=== PATIENT | female | born 1960 | race African-American/Black ===

== ENCOUNTER → 2018-11-28 | Outpatient (CLI) | payer OTHER ==
[~2018-11-28] MED LIST: LISINOPRIL10 MG PO; PRILOSEC40 MG PO; PROVENTIL HFA6.7 GM
--- NOTE | 2018-11-28 13:12 | Diagnostic Imaging Report ---
EXAMINATION: PA and lateral views of the chest. COMPARISON: None CLINICAL HISTORY: Right lung pain DISCUSSION: Lines/tubes: None. Lungs: The lungs are well inflated and clear. There is no evidence of pneumonia or pulmonary edema. Pleura: There is no pleural effusion or pneumothorax. Heart and mediastinum: Cardiomediastinal silhouette is unremarkable. Pulmonary vasculature is normal. Bones and soft tissues: No acute bony abnormalities. IMPRESSION: No acute cardiopulmonary abnormalities. Signed by: Dr. Derick Chamorro M.D. on 11/28/2018 1:09 PM
== END ==
LOC: RAD 11:22
PROVIDERS: ATTEND Internal Medicine Critical Care Medicine
DX: R05 Cough (principal); R06.00 Dyspnea, unspecified
CPT/HCPCS: 71046

== ENCOUNTER 2021-08-24 10:18 | Emergency (ER) | payer MEDICARE, OTHER ==
[~2021-08-24] VITALS: Ht 157.5 cm; Wt 104.3 kg
[2021-08-24] MEDS ORDERED: CEFUROXIME500 MG PO (10:57)
== END 2021-08-24 11:00 | disposition home or self-care (01) ==
LOC: FSED 10:26
DX: N39.0 Urinary tract infection, site not specified (principal); J44.9 Chronic obstructive pulmonary disease, unspecified
CPT/HCPCS: 81003; 87086; 99283

== ENCOUNTER 2021-08-26 14:55 | Emergency (ER) | payer MEDICARE, OTHER ==
[~2021-08-26] VITALS: Ht 160 cm; Wt 104.3 kg
[~2021-08-26 14:55] MED LIST changes: +CEFUROXIME500 MG PO
[2021-08-26] MEDS ORDERED: CEFTRIAXONE 1 GM VIAL IM ONE (16:15)
[2021-08-26] MEDS ORDERED: PROBIOTIC & AC1 EACH PO (16:22)
== END 2021-08-26 17:15 | disposition home or self-care (01) ==
LOC: FSED 15:13
DX: N30.90 Cystitis, unspecified without hematuria (principal); J44.9 Chronic obstructive pulmonary disease, unspecified; Z88.6 Allergy status to analgesic agent; Z79.899 Other long term (current) drug therapy
CPT/HCPCS: 81003; 87086; 99282; J0696

== ENCOUNTER 2021-09-11 16:30 | Emergency (ER) | payer MEDICARE, OTHER ==
[~2021-09-11] VITALS: Ht 160 cm; Wt 103.4 kg
[~2021-09-11 16:30] MED LIST changes: +PROBIOTIC & AC1 EACH PO
[2021-09-11 17:29] VITALS: BP 157/79
== END 2021-09-11 17:39 | disposition home or self-care (01) ==
LOC: FSED 16:33
DX: R20.8 Other disturbances of skin sensation (principal); L85.3 Xerosis cutis; G62.9 Polyneuropathy, unspecified; J44.9 Chronic obstructive pulmonary disease, unspecified; F41.9 Anxiety disorder, unspecified
CPT/HCPCS: 71046; 93005; 99283

== ENCOUNTER 2021-09-16 10:12 | Emergency (ER) | payer MEDICARE, OTHER ==
[~2021-09-16] VITALS: Ht 160 cm; Wt 101.8 kg
[2021-09-16] MEDS ORDERED: DICYCLOMINE HCL20 MG PO (10:45)
[2021-09-16] MEDS ORDERED: ATIVAN0.5 MG PO (10:45)
[2021-09-16] MEDS ORDERED: ADVAIR 250-501 EACH INH (10:45)
[2021-09-16] MEDS ORDERED: LISINOPRIL-HCT1 EACH (10:45)
[2021-09-16] MEDS ORDERED: PROVENTIL HFA6.7 GM INH (10:45)
[2021-09-16] MEDS ORDERED: FLONASE ALLERG9.9 ML INH (10:45)
[2021-09-16] MEDS ORDERED: FAMOTIDINE20 MG PO (10:45)
[2021-09-16] MEDS ORDERED: CEFTRIAXONE 1 GM VIAL IV ONE (11:00)
[2021-09-16] MEDS ORDERED: CEFTRIAXONE 1 GM in SODIUM CHLORIDE 0.9% 50ML 50 ML IV ONE (11:45)
== END 2021-09-16 12:14 | disposition home or self-care (01) ==
LOC: FSED 10:22
DX: F41.9 Anxiety disorder, unspecified (principal); G62.9 Polyneuropathy, unspecified; I10 Essential (primary) hypertension; J44.9 Chronic obstructive pulmonary disease, unspecified; K21.9 Gastro-esophageal reflux disease without esophagitis; R94.31 Abnormal electrocardiogram [ECG] [EKG]
CPT/HCPCS: 80048; 80076; 81003; 82553; 84484; 85025; 93005; 99283

== ENCOUNTER 2022-02-23 18:28 | Emergency (ER) | payer MEDICARE, OTHER ==
[~2022-02-23] VITALS: Ht 160 cm; Wt 102.1 kg
[~2022-02-23 18:28] MED LIST changes: +ADVAIR 250-501 EACH INH; +ATIVAN0.5 MG PO; +DICYCLOMINE HCL20 MG PO; +FAMOTIDINE20 MG PO; +FLONASE ALLERG9.9 ML INH; +LISINOPRIL-HCT1 EACH; +PROVENTIL HFA6.7 GM INH
[2022-02-23] MEDS ORDERED: MUCINEX DM ER1 EACH PO (19:56)
[2022-02-23] MEDS ORDERED: FLONASE ALLERG9.9 ML INH (19:56)
[2022-02-23 20:09] VITALS: BP 131/78
== END 2022-02-23 20:12 | disposition home or self-care (01) ==
LOC: FSED 18:49
DX: U07.1 COVID-19 (principal); J01.90 Acute sinusitis, unspecified; R05.9 Cough, unspecified
CPT/HCPCS: 71045; 99282; U0002

== ENCOUNTER → 2023-06-26 | Outpatient (REF) | payer MEDICARE ==
[~2023-06-26] MED LIST changes: +ALBUTEROL2.5 MG/3 M INH; +CARVEDILOL3.125 MG PO; +DERMOTIC20 ML; +FARXIGA5 MG; +MUCINEX DM ER1 EACH PO; +NITROFURANTOIN100 MG PO
== END ==
LOC: RAD 11:06
PROVIDERS: ATTEND Internal Medicine Critical Care Medicine
DX: J45.909 Unspecified asthma, uncomplicated (principal)
CPT/HCPCS: 71046

== ENCOUNTER 2024-07-30 11:36 | Emergency (ER) | payer MEDICARE ==
[~2024-07-30] VITALS: Ht 160 cm; Wt 102.1 kg
[~2024-07-30 11:36] MED LIST changes: +CETIRIZINE HCL10 MG PO; +OFLOXACIN5 M1 RIGHT EAR
[2024-07-30] MEDS ORDERED: ESTRADIOL42.5 GM (12:18)
[2024-07-30] MEDS ORDERED: ACYCLOVIR800 MG PO (12:18)
[2024-07-30] MEDS ORDERED: CLARITIN10 MG PO (12:18)
[2024-07-30] MEDS ORDERED: LEVALBUTER1.25 MG/3 INH (12:18)
[2024-07-30] MEDS ORDERED: ARTHRITIS PAIN650 M3 (12:18)
[2024-07-30] MEDS ORDERED: TOPIRAMATE25 MG PO (12:18)
[2024-07-30] MEDS ORDERED: MONTELUKAST SOD10 MG PO (12:18)
[2024-07-30] MEDS ORDERED: ZETIA10 MG PO (12:18)
[2024-07-30] MEDS ORDERED: SAXENDA3 MG/0.5 M (12:18)
[2024-07-30] MEDS ORDERED: OMEPRAZOLE40 MG PO (12:18)
[2024-07-30] MEDS ORDERED: MOUNJARO12.5 MG/0. (12:18)
[2024-07-30] MEDS ORDERED: NEURONTIN100 MG PO (12:18)
[2024-07-30] MEDS: SODIUM CHLORIDE 0.9% 500ML 500 ML IV ONE (13:08)
[2024-07-30] MEDS: KETOROLAC TROMETHAMINE 30 MG/ML VIAL IV STA (13:08)
[2024-07-30 13:49] VITALS: PULSE 65; RESP 16; TEMP 97.8; O2SAT 97
== END 2024-07-30 13:53 | disposition home or self-care (01) ==
LOC: FSED 11:41
DX: R42 Dizziness and giddiness (principal); B34.9 Viral infection, unspecified; R30.0 Dysuria; I10 Essential (primary) hypertension; E11.9 Type 2 diabetes mellitus without complications; E78.5 Hyperlipidemia, unspecified; K21.9 Gastro-esophageal reflux disease without esophagitis; G47.30 Sleep apnea, unspecified; Z11.52 Encounter for screening for COVID-19; Z87.19 Personal history of other diseases of the digestive system
CPT/HCPCS: 0223U; 81003; 83518; 87400; 99283; J7040

== ENCOUNTER 2025-02-06 18:49 | Emergency (ER) | payer MEDICARE, OTHER ==
[~2025-02-06] VITALS: Ht 160 cm; Wt 108.0 kg
[~2025-02-06 18:49] MED LIST changes: +ACYCLOVIR800 MG PO; +ARTHRITIS PAIN650 M3; +CLARITIN10 MG PO; +ESTRADIOL42.5 GM; +LEVALBUTER1.25 MG/3 INH; +MONTELUKAST SOD10 MG PO; +MOUNJARO12.5 MG/0.; +NEURONTIN100 MG PO; +OMEPRAZOLE40 MG PO; +SAXENDA3 MG/0.5 M; +TOPIRAMATE25 MG PO; +ZETIA10 MG PO
[2025-02-06 19:11] VITALS: PULSE 60; RESP 19; TEMP 98.5
[2025-02-06 22:29] VITALS: BP 141/65; RESP 18; O2SAT 96
== END 2025-02-06 22:20 | disposition home or self-care (01) ==
LOC: FSED 19:11
DX: R05.9 Cough, unspecified (principal); K21.9 Gastro-esophageal reflux disease without esophagitis; J84.10 Pulmonary fibrosis, unspecified; K76.0 Fatty (change of) liver, not elsewhere classified; K57.90 Diverticulosis of intestine, part unspecified, without perforation or abscess without bleeding; N28.1 Cyst of kidney, acquired; I10 Essential (primary) hypertension; E11.9 Type 2 diabetes mellitus without complications; E78.5 Hyperlipidemia, unspecified; J45.909 Unspecified asthma, uncomplicated; G47.30 Sleep apnea, unspecified
CPT/HCPCS: 70486; 74176; 99284

== ENCOUNTER 2025-06-19 16:13 | Emergency (ER) | payer MEDICARE, OTHER ==
[~2025-06-19] VITALS: Ht 160 cm; Wt 107.3 kg
[2025-06-19] MEDS ORDERED: HYDROCHLOROTH12.5 MG (16:39)
[2025-06-19] MEDS ORDERED: FUROSEMIDE40 MG PO (16:39)
[2025-06-19] MEDS ORDERED: TRADJENTA5 MG (16:39)
[2025-06-19] MEDS ORDERED: LEVOFLOXACIN250 MG PO (16:39)
[2025-06-19] MEDS ORDERED: LEXAPRO5 MG PO (16:39)
[2025-06-19] MEDS ORDERED: ONDANSETRON HCL 4 MG ORAL DISINTEGRATING TAB ONE (17:28)
[2025-06-19] MEDS: KETOROLAC TROMETHAMINE 60 MG/2 ML VIAL IM ONE (17:35)
[2025-06-19 18:34] VITALS: PULSE 58; RESP 16; TEMP 98.4; O2SAT 97
== END 2025-06-19 19:11 | disposition home or self-care (01) ==
LOC: FSED 16:37
DX: M25.562 Pain in left knee (principal); M25.462 Effusion, left knee; Y93.01 Activity, walking, marching and hiking; Y92.098 Other place in other non-institutional residence as the place of occurrence of the external cause; I10 Essential (primary) hypertension; E11.9 Type 2 diabetes mellitus without complications; E78.5 Hyperlipidemia, unspecified; K21.9 Gastro-esophageal reflux disease without esophagitis; J45.909 Unspecified asthma, uncomplicated; G47.30 Sleep apnea, unspecified; G25.81 Restless legs syndrome; F41.9 Anxiety disorder, unspecified; Z87.19 Personal history of other diseases of the digestive system
CPT/HCPCS: 73562; 96372; 99283; J1885; Q0162